=== PATIENT | female | born 2005 | race Hispanic/Latino ===

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

== ENCOUNTER 2024-09-29 12:11 | Emergency (ER) | payer SELFPAY ==
[2024-09-29] MEDS ORDERED: Bicillin LA 1.2 MILLION UNITS/2 ML SYRINGE ONE (12:34)
[2024-09-29] MEDS ORDERED: Ketorolac Tromethamine 30 MG (1 mL) VIAL ONE (12:34)
[2024-09-29] MEDS ORDERED: Dexamethasone 10 MG/ML VIAL ONE (12:34)
== END 2024-09-29 13:11 | disposition home or self-care (01) ==
LOC: ERS 12:11
DX: J02.0 Streptococcal pharyngitis (principal)
CPT/HCPCS: 96372; 99282; J0561; J1100; J1885